=== PATIENT | female | born 1955 | race Caucasian/White ===

== ENCOUNTER 2021-07-19 03:28 | Emergency (ER) | payer MEDICARE, OTHER, SELFPAY ==
[2021-07-19 03:29] VITALS: BP 148/80; PULSE 73; RESP 17; TEMP 36.2; O2SAT 96; BMI 38.7
[2021-07-19 03:31] VITALS: BP 148/80; PULSE 73; RESP 17; TEMP 36.2; O2SAT 96
[2021-07-19] MEDS: Ondansetron ODT 4 MG Tablet PO (03:59)
--- NOTE | 2021-07-19 04:00 | EKG12_ITS ---
Test Reason : DIZZINESS Blood Pressure : / mmHG Vent. Rate : 074 BPM Atrial Rate : 074 BPM P-R Int : 144 ms QRS Dur : 084 ms QT Int : 398 ms P-R-T Axes : 046 -21 010 degrees QTc Int : 441 ms Normal sinus rhythm Low voltage QRS (Precordial Leads) Confirmed by ROMERO NAVA, ARACELI ([id number]), order editor WIL CHOI ([id number]) on 07/23/2021 11:32:40 AM Referred By: GEORGETTE Confirmed By:ARACELI JASSO MD
--- NOTE | 2021-07-19 04:00 | CT_ITS ---
STUDY: CT BRAIN WITHOUT CONTRAST REASON FOR EXAM: Female, 66 years old. dizziness RADIATION DOSAGE (If Supplied By Facility): CTDIvol = ( 44.99 ) mGy, DLP = ( 812.98 ) mGycm TECHNIQUE: Transaxial CT imaging of the brain was performed without administration of intravenous contrast material. Individualized dose optimization techniques were used for this CT. COMPARISON: None. LIMITATIONS: None. BRAIN: Focal encephalomalacia in the left parieto-occipital region, consistent with chronic infarct. Scattered bilateral periventricular hypoattenuating foci.. VENTRICLES: The ventricles and cortical sulci are mildly enlarged. Bilateral periventricular hypoattenuation, nonspecific however likely represents chronic microvascular ischemic changes. EXTRA-AXIAL SPACES: No hemorrhages, fluid collections, or masses. CALVARIUM/SKULL BASE: Normal. FACE/SINUSES: Visualized portions normal. SOFT TISSUES: Normal. OTHER: None. CONCLUSION: 1. No intracranial hemorrhage. 2. Multifocal hypoattenuating foci in the periventricular white matter, suggestive of age-indeterminate lacunar infarct. 3. Focal chronic infarct in the left parieto-occipital region. 4. Senescent changes. Electronically Signed: Justin Roman MD at 5:35 EDT , CT/Brain/Head without Contrast IMPRESSION: undefined
[2021-07-19] MEDS: Meclizine 12.5 MG Tablet PO (04:08)
[2021-07-19 05:14] LABS: Absolute Neutrophil Count 4.3 X10^3/uL (2.0-7.7); Basophil# 0.03 X10^3/uL; Basophil% 0.5 % (0-1); Eosinophil# 0.21 X10^3/uL; Eosinophils% 3.7 % (0-5); Hemoglobin 10.3 g/dL (12.0-15.0); Lymphocyte % 12.2 % (19-41); Mean Corp Hgb Conc 30.3 g/dL (32-36); Mean Corpuscular Hgb 29.6 pg (27.0-32.0); Mean Corpuscular Volume 97.7 fL (81-99); Mean Platelet Vol. 9.7 fl (6.2-12.0); Monocyte% 8.7 % (0-10); NRBC Flagged by Analyzer 0 % (0-5); Neutrophil # 4.28 X10^3/uL (2.7-7.7); Neutrophil % 74.6 % (47-70); Platelet Count 305 K/mm3 (150-450); RBC Distribution Width CV 17.2 % (11.6-14.6); RBC Distribution Width SD 61.9 fl (35.1-43.9); Red Blood Count 3.48 M/mm3 (4.2-5.4); White Blood Count 5.7 K/mm3 (4.4-11.0)
[2021-07-19] MEDS: diazePAM 5 MG Tablet PO (05:24)
[2021-07-19 05:35] LABS: Anion Gap 3 (5-15); BUN 22 mg/dL (7-18); Calcium,Total 8.7 mg/dL (8.5-10.1); Chloride 111 mmol/L (98-107); Creatinine, Serum 0.88 mg/dL (0.55-1.02); EST Glomerular Filtration Rate 68 mL/min (>60); Est Glom Filt Rate - Afr Amer 83 mL/min (>60); Estimated Creatinine Clearance 83.49 ml/min; Glucose 157 mg/dL (74-106); Sodium Level 140 mmol/L (136-145); Troponin-I HS 19 pg/mL (3.0-54.0)
[2021-07-19 06:13] VITALS: RESP 18; O2SAT 97
--- NOTE | 2021-07-19 06:58 | EX.ED.DYSGE1 ---
HPI History of Present Illness Chief Complaint: Dizziness Narrative Narrative: Patient is a 66-year-old female who recently flew here from [place]. She states that the flight was uneventful and she was able to go to bed this evening. She states she awoke in the morning to use the restroom and after walking back and sitting down the bed became dizzy. She describes the dizzy sensation as a sense of motion and states it came on quickly and developed bouts of nausea and vomiting after this. She states that if she remains still that the nausea and dizziness resolved but as soon as she tries to get up and walk it returns. She states that she does have a history of stroke and is currently on a blood thinner secondary to this and is concerned that she may have developed a stroke once again and therefore presents to the hospital for evaluation. [facility] Medical History Anemia CVA (cerebral vascular accident) Diverticulitis Pulmonary embolism Thyroid activity decreased Vaginal cancer Home Medications apixaban [Eliquis] 5 mg PO BID 07/19/21 [History Last Taken Unknown] aspirin 81 mg PO DAILY 07/19/21 [History Last Taken Unknown] atorvastatin 80 mg PO DAILY 07/19/21 [History Last Taken Unknown] cholecalciferol (vitamin D3) 25 mcg PO DAILY 07/19/21 [History Last Taken Unknown] diazepam [Valium] 5 mg PO TID PRN 5 Days #15 tab 07/19/21 [Rx Last Taken Unknown] levothyroxine 150 mcg PO DAILY 07/19/21 [History Last Taken Unknown] ondansetron 4 mg PO TID PRN #21 tab 07/19/21 [Rx Last Taken Unknown] pantoprazole 40 mg PO BID 07/19/21 [History Last Taken Unknown] Allergy/AdvReac Type Severity Reaction Status Date / Time codeine Allergy Vomiting Verified 07/19/21 03:28 Surgical History (Updated 07/19/21 @ 03:33 by Alison Beck) History of hysterectomy History of tonsillectomy Social History Smoking Status: Never smoker ROS ROS ED Constitutional Constitutional ED: Reports sweats; Denies chills or fever(s) Eyes Eyes: Reports blurry vision ENT ENT ED: Denies sore throat Cardiovascular Cardiovascular: Reports palpitations; Denies chest pain Respiratory/Chest Respiratory/Chest: Denies cough or dyspnea Gastrointestinal Gastrointestinal: Reports nausea and vomiting; Denies abdominal pain or diarrhea Genitourinary Genitourinary ED: Denies dysuria Musculoskeletal Musculoskeletal: Denies back pain, myalgias or neck pain Integumentary Denies rash Neurologic Neurologic: Denies headache(s) Hematologic/Lymphatic Hematologic/Lymphatic: Reports easy bleeding and easy bruising EXAM Physical Exam Const Vital Signs: 07/19/21 03:29 07/19/21 03:31 07/19/21 03:41 Temperature 97.2 F L 97.2 F L Temperature Source Oral Oral Pulse Rate 73 73 Respiratory Rate 17 17 Respiratory Effort Normal Non-Labored Respiratory Pattern Normal Blood Pressure 148/80 H 148/80 H Blood Pressure Mean 102 102 Pulse Ox 96 96 Oxygen Delivery Method Room Air Room Air 07/19/21 06:13 Temperature Temperature Source Pulse Rate Respiratory Rate 18 Respiratory Effort Respiratory Pattern Blood Pressure Blood Pressure Mean Pulse Ox 97 Oxygen Delivery Method Room Air Positive well nourished and well developed General Appearance ED: well developed HEENT Reports TM's clear and moist mucous membranes Tympanic Membrane ED: Yes TM's clear Eyes PERRL and EOMs intact bilaterally Neck supple Neck Narrative: No meningeal signs Resp normal respiratory effort and clear to auscultation bilaterally Cardio regular rate and regular rhythm Rate: other Other Details: Radial pulses are +2-4 bilaterally are equal and symmetric GI normal to inspection, nondistended, normoactive bowel sounds, non-tender, non-distended and no masses GI Narrative: No voluntary guarding or rigidity no pulsatile mass Auscultation: normoactive bowel sounds Palpation: soft Extremity normal to inspection Neuro oriented x3 and CN's II-XII intact bilaterally Neuro Narrative: There is mild horizontal nystagmus noted. Positive Hallpike Prescott exam on the right as well. NIH stroke scale score of 0. Sensorium / Orientation: alert Motor Exam: strength 5/5 throughout Psych mental status grossly normal Skin no rashes or lesions noted MDM MDM MDM Narrative Medical decision making narrative: Patient presented to the ER slightly hypertensive but otherwise with stable vitals. Her history and exam is consistent with peripheral vertigo but as she does have a remote history of stroke as well as currently on blood thinners elected to perform a basic workup. Labs revealed no clinically significant findings. EKG was sinus rhythm. Patient was given some fluid Zofran and Antivert with only minimal symptom improvement and therefore Valium was added. Following this patient reported near resolution of her symptoms and was able to walk with a steady gait. The patient's head CT revealed chronic changes consistent with her previous stroke but no acute findings which correlates with her physical exam and symptoms. Therefore at this time as patient's symptoms have been improved with medication she can ended with a steady gait and overall work-up reveals no clinically significant changes she is safe for discharge Lab Data Attestation: I reviewed the patient's lab results. Labs: Laboratory Results - last 24 hr 07/19/21 07/19/21 04:50 04:50 WBC 5.7 RBC 3.48 L Hgb 10.3 L Hct 34.0 L MCV 97.7 MCH 29.6 MCHC 30.3 L RDW Std Deviation 61.9 H RDW Coeff of Skyla 17.2 H Plt Count 305 MPV 9.7 Immature Gran % (Auto) 0.300 Neut % (Auto) 74.6 H Lymph % (Auto) 12.2 L [place] % (Auto) 8.7 Eos % (Auto) 3.7 Baso % (Auto) 0.5 Absolute Neuts (auto) 4.3 Absolute Lymphs (auto) 0.70 L Nucleated RBC % 0 Sodium 140 Potassium 4.0 Chloride 111 H Carbon Dioxide 26.0 Anion Gap 3 L BUN 22 H Creatinine 0.88 Estim Creat Clear Calc 83.49 Est GFR (MDRD) Af Amer 83 Est GFR (MDRD) Non-Af 68 BUN/Creatinine Ratio 25.0 H Glucose 157 H Calcium 8.7 Troponin I High Sens 19 Radiography Diagnostic Testing: Clinical Impression(s) from Imaging Studies Brain CT 07/19/21 04:00 IMPRESSION: undefined Discharge Plan Triage Chief Complaint: Dizziness ED Provider: Mode Ledezma Dx/Rx/DC Orders Clinical Impression: Vertigo, Current use of [facility]itentiary anticoagulation Instructions: Vertigo Medicine Tx, ED BPV Vertigo Prescriptions: New ondansetron 4 mg tablet,disintegrating 4 mg PO TID PRN (Reason: nausea and vomiting) Qty: 21 RF: 0 diazepam [Valium] 5 mg tablet 5 mg PO TID PRN (Reason: dizziness or vertigo) 5 Days Qty: 15 RF: 0 No Action atorvastatin 80 mg Tablet 80 mg PO DAILY RF: 0 pantoprazole 40 mg Tablet,Delayed Release (Dr/Ec) 40 mg PO BID RF: 0 levothyroxine 150 mcg Tablet 150 mcg PO DAILY RF: 0 cholecalciferol (vitamin D3) 25 mcg (1,000 unit) Tablet 25 mcg PO DAILY RF: 0 Eliquis 5 mg Tablet 5 mg PO BID RF: 0 aspirin 81 mg Capsule 81 mg PO DAILY RF: 0 Primary Care Provider: Care Physician,No Primary Referrals: Fast,Hemalatha, DO [NON-STAFF] - 3-5 Days if not improving Care Physician,No Primary [Primary Care Provider] - Activity Restrictions/Additional Instructions: You may also try the Lake maneuver to help reduce or resolve symptoms and return to the ER should you have any further concerns Disposition Disposition: Home, Self Care
--- NOTE | 2021-07-19 07:02 | NURSING ---
ambulated to restroom and back to room. pt denied dizziness with ambulation.
[2021-07-19 07:14] VITALS: PULSE 75; RESP 18; O2SAT 97
== END 2021-07-19 07:21 | disposition home or self-care (01) ==
PROVIDERS: Emergency Provider Emergency Medicine; Visit Provider Emergency Medicine
DX: R42 Dizziness and giddiness (principal); Z79.01 Long term (current) use of anticoagulants; Z87.19 Personal history of other diseases of the digestive system; Z86.73 Personal history of transient ischemic attack (TIA), and cerebral infarction without residual deficits; Z86.711 Personal history of pulmonary embolism; Z85.44 Personal history of malignant neoplasm of other female genital organs; Z79.82 Long term (current) use of aspirin; Z79.899 Other long term (current) drug therapy
CPT/HCPCS: 36415; 70450; 80048; 84484; 85025; 93005; 96360; 99284; J7030; A4216